=== PATIENT | female | born 1995 | race Two or more races ===

== ENCOUNTER 2025-05-20 17:39 | Emergency (ER) | payer OTHER ==
[~2025-05-20] VITALS: Ht 160 cm; Wt 63.5 kg
[2025-05-20] MEDS ORDERED: LEVOTHYROXINE112 MC1 PO (18:26)
[2025-05-20] MEDS ORDERED: KETOROLAC TROMETHAMINE 30 MG VIAL IV STA (20:21)
[2025-05-20] MEDS ORDERED: 0.9 % SODIUM CHLORIDE 1,000 ML IV STA (20:21)
[2025-05-20] MEDS ORDERED: MORPHINE SULFATE 4 MG/ML VIAL IV STA (20:22)
[2025-05-20 21:09] LABS: BASO % 0.4 % (0.1-1.2); EOS # 0.02 (0.04-0.54); EOS % 0.1 % (0.7-7.0); LYMPH # 1.61 (1.18-3.74); LYMPH % 11.8 % (19.3-53.1); MEAN PLATELET VOLUME 10.60 fl (9.4-12.4); MONO # 0.78 (0.24-0.82); MONO % 5.7 % (4.7-12.5); NEUT # 11.18 (1.56-6.13); NEUT % 81.8 % (34.0-71.1); RED CELL DISTRIBUTION WIDTH 12.6 % (11.6-14.4)
[2025-05-20 21:10] LABS: INR 1.0
[2025-05-20 21:15] LABS: ALT/SGPT 20.0 U/L (12-78); AST/SGOT 20.0 U/L (15-37); BILIRUBIN TOTAL 0.89 mg/dL (0.3-1.2); BUN CREA RATIO 16.0 (7.0-25.0); CREATININE SERUM 0.74 mg/dL (0.55-1.02); GFR 90.95; GLOBULINA 3.7 G/DL (2.4-3.5); GLUCOSE FASTING 98.0 mg/dL (65-100); OSMOLALITY SERUM 281.0 MOSM/KG (275-295)
[2025-05-20 21:26] LABS: URINE APPEARANCE Clear; URINE BILIRRUBIN Small (NEGATIVE); URINE BLOOD Negative; URINE COLOR Orange; URINE GLUCOSE Negative (NEGATIVE); URINE LEUKOCYTE Moderate; URINE NITRATE Positive; URINE PROTEIN 30 (NEGATIVE); URINE UROBILINOGEN 1.0 E.U./dl
[2025-05-20 21:27] LABS: URINE BACTERIA 206.4 uL (0.0-1933); URINE EPITHELIAL CELLS 33.3 uL (0.0-38.8); URINE RBC 19.5 uL (0.0-20.8); URINE WBC 119.6 uL (0.0-23.2)
[2025-05-20 21:49] LABS: URINE CAST 0.14 uL (0.0-1.40); URINE KETONE 80 (NEGATIVE)
[2025-05-20] MEDS ORDERED: CEFTRIAXONE SODIUM 2,000 MG VIAL IV STA (22:44)
[2025-05-21] MEDS ORDERED: KETOROLAC TROMETHAMINE 30 MG VIAL IV STA (04:00)
[2025-05-21] MEDS ORDERED: CEPHALEXIN500 MG PO (04:05)
[2025-05-21] MEDS ORDERED: KETO10TA2 PO (04:05)
== END 2025-05-21 04:51 ==
LOC: ER 17:47
DX: N39.0 Urinary tract infection, site not specified (principal); R10.2 Pelvic and perineal pain; N83.292 Other ovarian cyst, left side; N83.291 Other ovarian cyst, right side